=== PATIENT | female | born 1950 | race Two or more races ===

== ENCOUNTER 2023-04-15 13:15 | Outpatient (CLI) | payer OTHER | END 2023-04-15 13:20 | disposition home or self-care (01) | LOC: RAD 13:15 | PROVIDERS: ATTEND Orthopaedic Surgery | DX: M25.561 Pain in right knee (principal); M25.562 Pain in left knee ==

== ENCOUNTER 2023-04-21 10:48 | Outpatient (CLI) | payer OTHER | END 2023-04-21 10:59 | disposition home or self-care (01) | LOC: MRI 10:48 | PROVIDERS: ATTEND Orthopaedic Surgery | DX: S83.201A Bucket-handle tear of unspecified meniscus, current injury, left knee, initial encounter (principal) | CPT/HCPCS: 73721 ==